=== PATIENT | female | born 1995 | race Caucasian/White ===

== ENCOUNTER 2017-02-17 19:48 | Emergency (ER) | payer OTHER ==
--- NOTE | 2017-02-17 19:55 | ED ---
Skin Complaint - HPI Summary HPI Summary: 21 YEAR OLD FEMALE PRESENTS WITH RIGHT EAR RING INFECTION. - History of Current Complaint Chief Complaint: UCSkin Time Seen by Provider: 02/17/17 19:55 Stated Complaint: EAR SKIN PAIN,INFLAMED Hx Last Menstrual Period: 01/31/17 - Allergy/Home Medications Allergies/Adverse Reactions: Allergies Allergy/AdvReac Type Severity Reaction Status Date / Time Penicillins [PCN] Allergy Rash Verified 02/17/17 19:53 PMH/Surg Hx/FS Hx/Imm Hx Previously Healthy: Yes Infectious Disease History: No Infectious Disease History: Denies: Traveled Outside the [place] in Last 30 Days - Social History Alcohol Use: Rare Substance Use Type: Reports: None Smoking Status (MU): Never Smoked Tobacco Review of Systems Constitutional: Negative Eyes: Negative ENT: Negative Cardiovascular: Negative Gastrointestinal: Negative Genitourinary: Negative Musculoskeletal: Negative Positive: Other - RIGHT EAR RING INFECTION Neurological: Negative Psychological: Normal All Other Systems Reviewed And Are Negative: Yes Physical Exam Triage Information Reviewed: Yes Vital Signs Reviewed: Yes Skin: Positive: Other - RIGH EAR RING INFECTION Eyes: Positive: Normal Procedures - Incision and Drainage Site: RIGHT EAR Anesthesia: Local - 1 % LIDOCAINE Instrument(s): Scalpel - #11 Packing: Gauze, Other - PLACEMENT OF SOLUMEDROL 40 MG - 1 ML Course/Dx - Diagnoses Provider Diagnoses: Embedded earring of right ear Discharge - Discharge Plan Condition: Stable Disposition: HOME Prescriptions: Mupirocin 2% CREAM* [Bactroban 2% CREAM*] 1 applic TOPICAL BID #1 tube Sulfamethox/Trimethoprim DS* [Bactrim DS 800/160 TAB*] 1 tab PO BID #20 tab Patient Education Materials: Pierced Earlobe Infection (ED) Referrals: [facility] [Primary Care Provider] -
[2017-02-17] MEDS ORDERED: Lidocaine 1% MPF* 2 ML VIAL INJ ONE (20:03)
[2017-02-17] MEDS ORDERED: methylPREDNISolone SOD 40 MG* 1 ML VIAL ONE (20:13)
[2017-02-17] MEDS ORDERED: methylPREDNISolone SOD 40 MG* 1 ML VIAL IV ONE (20:22)
--- NOTE | 2017-02-24 22:30 | ED ---
Progress - Progress Note Progress Note: no foreign body removed. Course/Dx - Diagnoses Provider Diagnoses: Embedded earring of right ear
--- NOTE | 2017-02-25 15:54 | UC ---
Progress - Progress Note Progress Note: no foreign body removed. 02/25/17 abscess was cultured during I/D
== END 2017-02-17 20:30 | disposition home or self-care (01) ==
LOC: UCEAST 19:48
DX: M79.5 Residual foreign body in soft tissue (principal); H60.01 Abscess of right external ear
CPT/HCPCS: 10060; 69000; 87070; 87205; 99212; G0463; J2920

== ENCOUNTER 2017-03-02 20:23 | Emergency (ER) | payer OTHER ==
[2017-03-02 21:03] VITALS: BP 121/78
[2017-03-02] MEDS ORDERED: Nitrofurantoin Macrocrystals* 50 MG CAP PO ONE ×2 (21:41)
--- NOTE | 2017-03-02 22:41 | UC ---
Brody Tripp Benjamin, scribed for Ambrosio Mancera MD on 03/02/17 at 2156 . Complaint Female HPI - HPI Summary HPI Summary: 21yo female c/o burning dysuria, fullness and cramping pain in bladder since Thursday. Pt also reports her toilet paper appearing pink when she wiped after urination and pt also noticed some red spots in her urine. Pt also states that she is currently on her period. Pt denies flank pain. Pt has hx of prior UTI. Pt had recent piercing infection that pt was rxed on Bactrim. Pt finished her Bactrim course a few days ago. Pt reports having vomited while she was on her Bactrim. - History Of Current Complaint Chief Complaint: UCGU Stated Complaint: PAINFUL URINATION Time Seen by Provider: 03/02/17 21:29 Hx Obtained From: Patient Hx Last Menstrual Period: due soon Onset/Duration: Gradual Onset, Lasting Days - since Thursday, Still Present Timing: Constant Severity Initially: Mild Severity Currently: Mild Pain Scale Used: 0-10 Numeric Character: Burning Aggravating Factor(s): Urination Alleviating Factor(s): Nothing Associated Signs And Symptoms: Positive: Negative - Allergies/Home Medications Allergies/Adverse Reactions: Allergies Allergy/AdvReac Type Severity Reaction Status Date / Time Penicillins [PCN] Allergy Rash Verified 02/17/17 19:53 Home Medications: Home Medications Apri 03/02/17 [History] PMH/Surg Hx/FS Hx/Imm Hx GI/ History: Other Other GI/ History: UTI - Surgical History Surgical History: None - Family History Known Family History: Positive: Hypertension, Other - lung CA - Social History Occupation: Student Lives: Alone Alcohol Use: Rare Substance Use Type: None Smoking Status (MU): Never Smoked Tobacco Review of Systems Constitutional: Negative Skin: Negative Eyes: Negative ENT: Negative Respiratory: Negative Cardiovascular: Negative Gastrointestinal: Abdominal Pain - suprapubic pain Genitourinary: Dysuria, Hematuria Motor: Negative Neurovascular: Negative Musculoskeletal: Negative Neurological: Negative Psychological: Negative All Other Systems Reviewed And Are Negative: Yes Physical Exam Triage Information Reviewed: Yes Appearance: Well-Appearing, No Pain Distress, Well-Nourished Vital Signs: Initial Vital Signs Temp 98.1 F 03/02/17 20:57 Pulse 74 03/02/17 20:57 Resp 18 03/02/17 20:57 BP 121/78 03/02/17 20:57 Pulse Ox 100 03/02/17 20:57 Vital Signs Reviewed: Yes Eyes: Positive: Conjunctiva Clear ENT: Positive: Normal ENT inspection, Hearing grossly normal Neck: Positive: Supple, Nontender Respiratory: Positive: Lungs clear, Normal breath sounds, No respiratory distress Cardiovascular: Positive: RRR, No Murmur, Pulses Normal Abdomen Description: Positive: Soft, Other: - suprapubic tenderness.. Negative : CVA Tenderness (R), CVA Tenderness (L) Musculoskeletal: Positive: Strength Intact, ROM Intact Neurological: Positive: Alert, Muscle Tone Normal Psychological: Positive: Age Appropriate Behavior Skin: Negative: rashes Diagnostics - Laboratory Diagnostic Studies Completed/Ordered: POC UA: positive for protein, blood, and leukocyte esterase. Otherwise normal urine. POC : Negative. Complaint Female Dx - Course Course Of Treatment: Reviewed pts medication and allergy lists. Blood pressure noted. STARTED ON MACROBID 100MG PO BID X 7 DAYS. - Differential Dx/Diagnosis Provider Diagnoses: UTI Discharge - Discharge Plan Condition: Stable Disposition: HOME Prescriptions: Nitrofurantoin Monohyd Macro [Macrobid] 100 mg PO BID #12 cap Patient Education Materials: Urinary Tract Infection in Women (ED) Referrals: [facility] [Primary Care Provider] - Additional Instructions: FOLLOW UP WITH YOUR DOCTOR. GET RECHECKED FOR ANY WORSENING OF YOUR CONDITION; PAIN, FEVER, YOU FEEL ILL OR QUESTIONS OR CONCERNS. The documentation as recorded by the Brody quiroz Benjamin accurately reflects the service I personally performed and the decisions made by me, Ambrosio Mancera MD.
== END 2017-03-02 21:58 | disposition home or self-care (01) ==
LOC: UCEAST 20:23
DX: N39.0 Urinary tract infection, site not specified (principal); R31.9 Hematuria, unspecified; Z32.02 Encounter for pregnancy test, result negative; Z87.440 Personal history of urinary (tract) infections; Z88.0 Allergy status to penicillin
CPT/HCPCS: 81003; 84702; 87086; 99212; A9270-GY; G0463

== ENCOUNTER 2017-03-25 18:44 | Emergency (ER) | payer OTHER ==
[2017-03-25 19:10] VITALS: BP 123/81
[2017-03-25] MEDS ORDERED: Tetan/Diph/Pertus SYR(Tdap)* 0.5 ML SYR(BOOSTRIX) use SYR IM ONE (19:26)
--- NOTE | 2017-03-25 19:29 | ED ---
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 Patient states she was using a machine and accidently slipped catching her finger on the blade. Sparing finger nail. Denies pain unless palpated. Minimal to no bleeding at this time. Last tetanus unknown. States around the laceration it is slightly numb however entire thumb is not and she has FROM. No other injuries or complaints. No concern for fracture. Denies anticoagulants and any PMHx. Has not taken any medications. - History of Current Complaint Stated Complaint: RT THUMB LAC Time Seen by Provider: 03/25/17 18:59 Hx Obtained From: Patient Hx Last Menstrual Period: due soon Onset/Duration: Sudden Onset Aggravating: Movement Alleviating: Compression Timing: Constant Onset Severity: Moderate Current Severity: Mild Pain Intensity: 3 Pain Scale Used: 0-10 Numeric Associated Signs & Symptoms: Pain - on palpation Related Hx: Dominant Hand (Right), Recent Trauma - Allergy/Home Medications Allergies/Adverse Reactions: Allergies Allergy/AdvReac Type Severity Reaction Status Date / Time Penicillins [PCN] Allergy Rash Verified 02/17/17 19:53 PMH/Surg Hx/FS Hx/Imm Hx Endocrine/Hematology History: Denies: Hx Anticoagulant Therapy, Hx Diabetes, Hx Thyroid Disease Cardiovascular History: Denies: Hx Hypertension Respiratory History: Denies: Hx Asthma, Hx Chronic Obstructive Pulmonary Disease (COPD) GI History: Denies: Hx Ulcer - Surgical History Surgery Procedure, Year, and Place: n/a - Immunization History Date of Tetanus Vaccine: unknown Immunizations Up to Date: Yes Infectious Disease History: No Infectious Disease History: Denies: Hx Clostridium Difficile, Hx Hepatitis, Hx Human Immunodeficiency Virus (HIV), Hx of Known/Suspected MRSA, Hx Shingles, Hx Tuberculosis, Hx Known/ Suspected VRE, Hx Known/Suspected VRSA, History Other Infectious Disease, Traveled Outside the [place] in Last 30 Days - Family History Known Family History: Positive: Hypertension, Other - lung CA - Social History Alcohol Use: Occasionally Substance Use Type: Reports: None Smoking Status (MU): Never Smoked Tobacco Review of Systems Constitutional: Negative Cardiovascular: Negative Respiratory: Negative Musculoskeletal: Negative Positive: Other - laceration Neurological: Negative All Other Systems Reviewed And Are Negative: Yes Physical Exam Triage Information Reviewed: Yes Vital Signs On Initial Exam: Initial Vitals Temp Pulse Resp BP Pulse Ox 97.2 F 60 16 138/97 100 03/25/17 18:49 03/25/17 18:49 03/25/17 18:49 03/25/17 18:49 03/25/17 18:49 Vital Signs Reviewed: Yes Appearance: Positive: Well-Appearing, No Pain Distress, Well-Nourished Skin: Positive: Warm, Skin Color Reflects Adequate Perfusion, Dry, Other - small 1cm laceration, superficial layer, not deep of right lateral top of thumb , no nail trauma. minimal to no bleeding, no FB, irrigated and cleaned while in ED.. Negative: Cold, Cyanosis @, Pale, Erythema @ Head/Face: Positive: Normal Head/Face Inspection Eyes: Positive: Conjunctiva Clear ENT: Positive: Hearing grossly normal Neck: Positive: Supple, Nontender Respiratory/Lung Sounds: Positive: Clear to Auscultation, Breath Sounds Present. Negative: Rales, Rhonchi, Wheezes Cardiovascular: Positive: Normal, RRR, Pulses are Symmetrical in both Upper and Lower Extremities - 2+ radial b/l. Negative: Murmur, Rub Musculoskeletal: Positive: Normal, Strength/ROM Intact, Pain @ - on palpation and manipulation of right thumb laceration. Negative: Limited @, Interruption @ , Abnormal @ Neurological: Positive: Normal, Sensory/Motor Intact - sensation intact and normal, Alert, Oriented to Person Place, Time, NV Bundle Intact Distally, Normal Gait Psychiatric: Positive: Affect/Mood Appropriate Procedures - Laceration/Wound Repair 1 Location: Other - right anterolateral thumb, DIP Description: Linear Length, Depth and Shape: 1cm, very superficial, no depth, well approximated Irrigated w/ Saline (ccs): 200 Laceration/Wound Explored: clean, no foreign body removed Closure: Skin Adhesive Sterile Dressing Applied?: Yes Diagnostics - Vital Signs Vital Signs Temp Pulse Resp BP Pulse Ox 03/25/17 19:07 98.1 F 70 18 123/81 100 03/25/17 18:49 97.2 F 60 16 138/97 100 - Laboratory Lab Statement: Any lab studies that have been ordered have been reviewed, and results considered in the medical decision making process. Laceration Repair Course/Dx - Course Course Of Treatment: due to PE findings, CLIFF and depth of laceration no imaging required. did not want pain management at this time. laceration was glued without complication. patient tolerated procedure well. no other complaints or injuries. aware of worsening signs and symptoms such as infection to watch out for. follow up pcp. keep clean and dry for 48 hours then remove dressing, gently rinse and apply triple antibiotic. teatnus updated. - Differential Dx Differental Diagnoses: Abrasion, Avulsion, Laceration - Clinical Impression Provider Diagnoses: Laceration of right thumb Discharge - Discharge Plan Condition: Stable Disposition: HOME Patient Education Materials: Laceration (ED), Skin Adhesive Care (ED) Referrals: [facility] [Primary Care Provider] - Additional Instructions: Keep laceration clean and dry for the next 24-48 hours. After 2 days you may remove dressing and gently rinse, clean. Do not pick at glue. Apply triple anti-biotic ointment and apply band-aid as desired. Watch for worsening signs such as infection. Rest, elevate and apply cool compresses as desired to help sooth any pain. Follow up primary care provider.
== END 2017-03-25 19:45 | disposition home or self-care (01) ==
LOC: ED 18:44
DX: S61.011A Laceration without foreign body of right thumb without damage to nail, initial encounter (principal); W26.9XXA Contact with unspecified sharp object(s), initial encounter; Y93.9 Activity, unspecified; Y92.9 Unspecified place or not applicable
CPT/HCPCS: 90471; 90715; 99281

== ENCOUNTER 2017-09-01 20:10 | Emergency (ER) | payer OTHER | END 2017-09-01 21:30 | disposition left against medical advice (07) | LOC: UCEAST 20:10 | DX: H57.9 Unspecified disorder of eye and adnexa (principal) ==

== ENCOUNTER 2017-09-02 16:29 | Emergency (ER) | payer OTHER ==
[2017-09-02 16:50] VITALS: BP 113/70
--- NOTE | 2017-09-02 17:01 | UC ---
Eye Complaint HPI - HPI Summary HPI Summary: Pt presents with right eye redness and discharge for 2 days. She tells me that she is recently recovering from a URI. Yesterday she woke up with her right eye red, itchy, and draining yellowish material. She washed it with a wash cloth and symptoms improved throughout the day. This morning it happened again. Denies fever, chills, vision changes, headache, contact usage, or eye trauma. - History of Current Complaint Hx Obtained From: Patient Hx Last Menstrual Period: due soon Onset/Duration: Sudden Onset Timing: Constant Pain Intensity: 0 Location of Injury: Conjunctiva, Sclera <Alf Morales - Last Filed: 09/02/17 18:32> <Celia Rutherford - Last Filed: 09/02/17 19:05> - History of Current Complaint Chief Complaint: UCEye Stated Complaint: EYE COMPLAINT Time Seen by Provider: 09/02/17 17:01 - Allergies/Home Medications Allergies/Adverse Reactions: Allergies Allergy/AdvReac Type Severity Reaction Status Date / Time Penicillins Allergy Hives Verified 09/02/17 16:51 PMH/Surg Hx/FS Hx/Imm Hx Previously Healthy: Yes Other History Of: Negative For: Anticoagulant Therapy - Surgical History Surgical History: None Surgery Procedure, Year, and Place: n/a - Family History Known Family History: Positive: Hypertension, Other - lung CA - Social History Occupation: Student Lives: Dormitory/Roommates Alcohol Use: Occasionally Substance Use Type: None Smoking Status (MU): Never Smoked Tobacco <Alf Morales - Last Filed: 09/02/17 18:32> Review of Systems Constitutional: Negative Skin: Negative Eyes: Drainage, Eye Redness ENT: Negative Respiratory: Negative Cardiovascular: Negative Neurological: Negative Psychological: Negative All Other Systems Reviewed And Are Negative: Yes <Alf Morales - Last Filed: 09/02/17 18:32> Physical Exam Triage Information Reviewed: Yes Appearance: Well-Appearing, No Pain Distress, Well-Nourished Vital Signs: Initial Vital Signs Temp 98.3 F 09/02/17 16:46 Pulse 66 09/02/17 16:46 Resp 18 09/02/17 16:46 BP 113/70 09/02/17 16:46 Pulse Ox 100 09/02/17 16:46 Vital Signs Reviewed: Yes Eyes: Positive: Conjunctiva Inflamed - Right eye, Discharge - Mild purulent yellowish/clear discharge right eye, Other: - Sclera with mild injection right eye. EOMI. PERRLA. OS/OD/OU 20/25 ENT: Positive: Hearing grossly normal, Pharynx normal, TMs normal, Hoarse voice , Uvula midline. Negative: Pharyngeal erythema, Nasal congestion, Nasal drainage, TM bulging, TM dull, TM red, Tonsillar swelling, Tonsillar exudate, Sinus tenderness Neck: Positive: Supple, Nontender, No Lymphadenopathy Respiratory: Positive: Lungs clear, Normal breath sounds, No respiratory distress, No accessory muscle use Cardiovascular: Positive: RRR, No Murmur, Pulses Normal Neurological: Positive: Alert Psychological: Positive: Age Appropriate Behavior Skin: Negative: rashes <Alf Morales - Last Filed: 09/02/17 18:32> Vital Signs: Initial Vital Signs Temp 98.3 F 09/02/17 16:46 Pulse 66 09/02/17 16:46 Resp 18 09/02/17 16:46 BP 113/70 09/02/17 16:46 Pulse Ox 100 09/02/17 16:46 <Celia Rutherford - Last Filed: 09/02/17 19:05> Eye Complaint Course/Dx - Course Course Of Treatment: Right eye conjunctivitis - Differential Dx/Diagnosis Provider Diagnoses: Right eye conjunctivitis <Alf Morales - Last Filed: 09/02/17 18:32> Discharge <Alf Morales - Last Filed: 09/02/17 18:32> <Celia Rutherford - Last Filed: 09/02/17 19:05> - Discharge Plan Condition: Stable Disposition: HOME Prescriptions: Polymyx/Trimethoprim OPTH* [Polytrim OPHTH*] 1 drop RIGHT EYE QID #1 btl Patient Education Materials: Conjunctivitis (ED) Referrals: [facility] [Primary Care Provider] - Additional Instructions: If you develop a fever, shortness of breath, chest pain, new or worsening symptoms - please call your PCP or go to the ED. Attestation Statement Scribe Attestation: I was available for consult. This patient was seen by the advanced practice provider. The patient was not presented to, seen by, or examined by me.-Ljj User Type: Provider - I was available for consult. This patient was seen by the advanced practice provider. The patient was not presented to, seen by, or examined by me.-Zhen <Celia Rutherford - Last Filed: 09/02/17 19:05>
== END 2017-09-02 17:32 | disposition home or self-care (01) ==
LOC: UCEAST 16:29
DX: H10.31 Unspecified acute conjunctivitis, right eye (principal); Z88.0 Allergy status to penicillin
CPT/HCPCS: 99212; G0463